=== PATIENT | male | born 2000 | race Caucasian/White ===

== ENCOUNTER 2023-01-13 13:28 | Outpatient (AMB) | payer OTHER, SELFPAY ==
--- NOTE | 2023-01-13 13:29 | MHC.PC.OV ---
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/ Discuss medical concerns Manager Surgical Required: No Allergies No Known Allergies Allergy (Verified 01/13/23 13:44) Medication List - Last Reconciled 01/13/23 by ELI Wen No Known Home Meds Tobacco use date assessed: 01/13/23 Dental Screening Dental Screen Date: 01/13/23 Did you have a dental visit in the last 12 months?: Yes Did you have a dental problem in the last 6 months where you did not have access to dental care?: No Was dental information given to patient?: Patient has dentist HPI HPI Comments History of Present Illness Details 22-year-old male new patient presents today to establish care. Past medical history significant for disorder, depression, ADHD and heart murmur. Review of previous echo complete at age 13 showed incomplete tricuspid regurgitation. Patient denies any chest pain, palpitations, shortness of breath or syncope. Patient reports has not had echocardiogram since then. Echocardiogram ordered to further evaluate. Patient reports past history of opiate abuse with Percocets. Reports last use January 2021. Patient not currently following with MAT clinic or on any medications for this. Patient denies any cravings. PHQ-9 and michele 7 scores scoring for severe depression and anxiety. Patient states not currently following with a counselor, offered referral patient declines at this time. Patient reports previously has been on sertraline, Lexapro in fluoxetine in the past, states medications did not work for him and he would eat for days and made his ADHD much worse. Patient reports he has no interest at starting on any medication at this time to manage his anxiety or depression. Denies SI/HI High anxiety and depression. Patient reports 1 year ago he had right testicular pain and he was found to have hydrocele. Patient denies any testicular pain or lumps at this time. Offered testicular exam however patient declined at this time [facility] Medical History (Updated 01/14/23 @ 06:36 by ELI Wen) Opioid abuse Hydrocele of testis Heart murmur Surgical History (Updated 01/13/23 @ 13:49 by ELI Wen) [place] teeth extracted Family History (Updated 01/13/23 @ 13:49 by ELI Wen) Mother Diabetes Father No problems noted. Social History (Updated 01/13/23 @ 13:52 by ELI Wen) Housing: House Alcohol intake: current Alcohol intake frequency: 0-2 drinks per day Alcohol type: hard liquor Patient Tobacco Use Status: Current someday Tobacco user Tobacco use type: Cigarette Cigarettes Per Day: 2 e-Cigarette/Vaping Use: Never Used Substance Use Type: Marijuana service: No Current occupational status: employed Cognitive needs: No Hearing needs: No Vision needs: No Questionnaire PHQ-9 Over the last 2 weeks, how often have you been bothered by any of the following problems? 1. Little interest or pleasure in doing things: nearly every day 2. Feeling down, depressed, or hopeless: nearly every day 3. Trouble falling or staying asleep, or sleeping too much: nearly every day 4. Feeling tired or having little energy: nearly every day 5. Poor appetite or overeating: nearly every day 6. Feeling bad about yourself - or that you are a failure or have let yourself or your family down: nearly every day 7. Trouble concentrating on things, such as reading the newspaper or watching television: nearly every day 8. Moving or speaking so slowly that other people could have noticed. Or the opposite - being so fidgety or restless that you have been moving around a lot more than usual: nearly every day 9. Thoughts that you would be better off or of hurting yourself in some way: not at all Total score: 24 Depression Screening Interpretation: Positive Depression Screening Done: Yes 87639 - PHQ-9 Billing: Yes Source: Developed by Drs. Den Bowles, Amber Mota, Chip Farris and colleagues, with an educational [place] from [employer]. Thrive Questionnaire Date Thrive assessed: 01/13/23 I am a: Patient What is your living situation today?: I have a steady place to live Within the past 12 months, did the food you bought not last and you didn't have the money to get more?: Never true Within the past 12 months, did you worry whether your food would run out before you got money to buy more?: Never true Do you have trouble paying for medicines?: No Do you have trouble getting transportation to medical appointments?: No Do you have trouble paying your heating and electricity bill?: No Do you have trouble taking care of your child, family member or friend?: No Do you have trouble with day-to-day activities such as bathing, preparing meals, shopping, managing finances, etc.?: No Are you currently unemployed and looking for a job?: No Are you interested in more education?: No AUDIT C Alcohol Use Questionnaire (AUDIT-C) 1. How often do you have a drink containing alcohol?: 2-3 times a week 2. How many drinks containing alcohol do you have on a typical day when you are drinking?: 5 or 6 3. How often do you have six or more drinks on one occasion?: Never Total Score: 5 MICHELE-7 AMB Questionnaire MICHELE-7 Date MICHELE - 7 assessed: 01/13/23 Feeling nervous, anxious, or on edge: 3 = Nearly every day Not being able to stop or control worryin = Nearly every day Worrying too much about different things: 3 = Nearly every day Trouble relaxin = Nearly every day Being so restless that it is hard to sit still: 3 = Nearly every day Becoming easily annoyed or irritable: 3 = Nearly every day Feeling afraid as if something awful might happen: 3 = Nearly every day Total MICHELE-7 score (0-4 normal; 5-9 mild; 10-14 moderate; 15-21 severe): 21 Source: Developed by Drs. Den Bowles, Amber Mota, Chip Farris and colleagues, with an educational [place] from [employer]. MICHELE-7 Assessment Billing MICHELE-7 Assessment Tool: MICHELE-7 Assessment 11671 Review of Systems Const Denies chills, Denies fatigue, Denies fever(s) and Denies poor appetite Eyes Denies no additional complaints ENT Reports Normal hearing present Card Denies chest pain, Denies syncope, Denies rapid heart rate and Denies dyspnea Resp Denies cough and Denies dyspnea GI Denies change in stool character, Denies constipation, Denies diarrhea, Denies nausea and Denies vomiting Denies dysuria, Denies urinary frequency and Denies urinary urgency Neuro Reports Normal hearing present, Denies confusion and Denies syncope Psych Denies confusion Endo Denies fatigue Physical exam (Primary Care) Vital Signs: Last Vital Signs Pulse 98 01/13/23 13:30 BP 142/66 H 01/13/23 13:30 Pulse Ox 99 01/13/23 13:30 Oxygen Delivery Method Room Air 01/13/23 13:30 BMI result Body Mass Index 22.5 Tobacco/Smoking Status: Tobacco use Status Tobacco use date assessed 01/13/23 01/13/23 13:39 Patient Tobacco Use Status Current someday Tobacco 01/13/23 13:52 Tobacco use type Cigarette 01/13/23 13:52 e-Cigarette/Vaping Use Never Used 01/13/23 13:52 PHQ-9: PHQ-9 Score PHQ-9: Total score 24 01/13/23 14:09 Depression Screening Interpretation: Positive Thrive Assessment: Date of Thrive Assessment Date Thrive assessed 01/13/23 01/13/23 13:39 Const General: No confusion Orientation/consciousness: No confusion HENMT Head: Yes normocephalic and Yes atraumatic Eyes Conjunctivae: conjunctivae normal Chest Chest palpation & inspection: normal inspection of the chest Resp Effort & Inspection: normal respiratory effort Auscultation: clear to auscultation bilaterally, no crackles, no rhonchi and no wheezes Cardio Rate: regular rate Rhythm: regular rhythm Heart sounds: S1 normal heart sound present and S2 normal heart sound present GI Inspection: Yes normal to inspection Neuro General: No confusion Cranial nerves: Yes Normal hearing present Extrem General: No edema Office Procedures Flu Questionnaire Does the patient have a severe egg allergy?: No Does the patient have severe life threatening allergies?: No Does the patient have a fever or illness today?: No Has the patient ever had Guillain-[place] Syndrome?: No Has the patient ever had any past reaction to a flu shot?: No Immunizations flu vacc [id number] 6mos up(PF) 60 mcg(15 mcgx4)/0.5 mL IM syringe Performing Provider: ELI Wen Performing Location: [facility] Administered by: JAMES Sanchez on 01/13/23 14:10 Dose Route Admin Location Dispensed Lot Number Expiration Date NDC [place]man 0.5 mL IM Left Deltoid 0.5 mL [id number] 10/09/23 [id number] [employer] VIS Given Date VIS Provided VIS Publication Date 01/13/23 Single Vaccine 20 Eligibility Eligibility Date Funding Source Not [facility] Eligible 01/13/23 Private Assessment and Plan Assessment & Plan (1) Heart murmur: Comment: incomplete tricuspid regurg. noted age 13 Code(s): R01.1 - Cardiac murmur, unspecified Plan: Repeat echocardiogram ordered to follow-up on incomplete tricuspid regurgitation. (2) ADHD: Code(s): F90.9 - Attention-deficit hyperactivity disorder, unspecified type Plan: Not currently on medications for ADHD at this time. (3) Depression: Code(s): F32.A - Depression, unspecified Plan: PHQ-9 scoring for severe and depression denies SI/HI Refuse counseling referral. Patient declines wanting to start on any medications at this time as noted in HPI. (4) Generalized anxiety disorder: Code(s): F41.1 - Generalized anxiety disorder Plan: Michele 7 positive for severe anxiety. Declined counseling referral or the need to start medications at this time. (5) Elevated blood pressure reading: Code(s): R03.0 - Elevated blood-pressure reading, without diagnosis of hypertension Plan: Blood pressure elevated office today 142/66. Patient advised to follow low-salt diet exercise and continue to monitor his blood pressure. Plan Follow-up in 3 months for physical exam. Orders: Orders TSH reflex Free T4 01/13/23 F32.A - Depression, unspecified, F41.1 - Generalized anxiety disorder Influenza [id number] Immunization 01/13/23 Z23 - Encounter for immunization CA echo transthoracic complete 01/13/23 R01.1 - Cardiac murmur, unspecified Comprehensive Met. Panel 01/13/23 F32.A - Depression, unspecified, F41.1 - Generalized anxiety disorder Coding Level of Care Code New Pt Level 4 (83612) Diagnoses Heart murmur R01.1 ADHD F90.9 Depression F32.A Generalized anxiety disorder F41.1 Elevated blood pressure reading R03.0 Additional Codes MICHELE-7 Assessment Billing - MICHELE-7 Assessment Tool: MICHELE-7 Assessment [id number] ([id number])
[2023-01-13 13:30] VITALS: BP 142/66; PULSE 98; O2SAT 99; BMI 22.5
== END 2023-01-13 14:16 | disposition home or self-care (01) ==
PROVIDERS: PCP Nurse Practitioner Family; Visit Provider Nurse Practitioner Family
DX: Z23 Encounter for immunization (principal)
CPT/HCPCS: 90471; 90686; 99204